=== PATIENT | female | born 1980 | race Caucasian/White ===

== ENCOUNTER 2017-09-20 20:23 | Inpatient (IN) | payer OTHER ==
[~2017-09-20] VITALS: Ht 172.7 cm; Wt 94.8 kg
[~2017-09-20 20:23] MED LIST: ACET325 PO; ALBU90OI INH; BUSP15 PO; CEPH500 PO; CIPR500 PO; CITA20 PO; CODGUAEL PO; CONEST1.25 PO; Cleocin HCl150 MG PO; Crutch1 EACH MISC; DOXY100 PO; HYDACE5 PO; IBUP400 PO; IBUP600; IBUP600 PO; IBUP800 PO; LEVSOD50 PO; LEVSOD75 PO; LORA1 PO; Loperamide2 MG PO; METR500 PO; Macrobid 100 M100 MG PO; Naprosyn500 MG PO; OXYACE5T PO; OXYC5; OXYC5 PO; PENVK500 PO; PHENA200 PO; POTCHL20ER PO; PREN-16 PO; PROM25 PO; Pyridium200 MG PO; RXHYDACE PO; RXOXYACE PO; SERT50 PO; SULTRIDS PO; SULTRISS; Tylenol325 MG PO; Vibramycin100 MG PO; Zofran Odt4 MG PO
[2017-09-20 20:50] LABS: BASOPHILS ABSOLUTE AUTO 0.02 K/mm3 (0.00-0.23); BASOPHILS PERCENT AUTO 0 % (0-2); EOSINOPHILS ABSOLUTE AUTO 0.18 K/mm3 (0.00-0.68); EOSINOPHILS PERCENT AUTO 2 % (0-6); Hematocrit 43.4 % (33.0-51.0); IMMATURE GRAN ABSOLUTE AUTO 0.01 K/mm3 (0.00-0.10); IMMATURE GRAN PERCENT AUTO 0 % (0-1); LYMPHOCYTES ABSOLUTE AUTO 3.68 K/mm3 (0.84-5.20); LYMPHOCYTES PERCENT AUTO 41 % (21-46); MONOCYTES ABSOLUTE AUTO 0.63 K/mm3 (0.16-1.47); MONOCYTES PERCENT AUTO 7 % (4-13); Mean Corpuscular HGB 27.4 pg (26.0-34.0); Mean Corpuscular Volume 91 fL (80-100); Mean Platelet Volume 8.2 fL (9.1-12.4); NEUTROPHILS ABSOLUTE AUTO 4.48 K/mm3 (1.96-9.15); NEUTROPHILS PERCENT AUTO 50 % (41-73); Platelet Count 261 K/mm3 (150-400); RDW Coefficient Variation 15.1 % (11.7-14.2); RDW Standard Deviation 50.7 fL (35.1-46.3); Red Blood Cell Count 4.75 M/mm3 (3.80-5.20)
[2017-09-20 21:09] LABS: Creatine Kinase MB 2.3 ng/mL (0.0-3.6); Creatine Kinase MB Index 2.6 (0.0-4.0)
[2017-09-20 21:10] LABS: Alanine Aminotransfer (ALT/SGP 36 U/L (12-78); Albumin, Blood 3.5 g/dL (3.4-5.0); Albumin/Globulin Ratio 0.7 (0.8-1.8); Alk Phos 108 U/L (50-136); Anion Gap 8 mmol/L (6-16); Aspartate Aminotrans (AST/SGOT 29 U/L (12-37); Bilirubin, Total 0.3 mg/dL (0.1-1.0); Blood Urea Nitrogen 13 mg/dL (8-24); Bun/Creatinine Ratio 20.6 (12.0-20.0); CO2, Blood 27 mmol/L (21-32); Calcium, Blood 8.8 mg/dL (8.5-10.1); Chloride, Blood 104 mmol/L (98-108); Creatinine, Blood 0.63 mg/dL (0.40-1.00); Ethanol (Alcohol), Blood, Med <3 mg/dL; Globulin, Blood 5.3 g/dL (2.2-4.0); Glomerular Filtration Rate >60 (60-); Glucose, Blood 78 mg/dL (70-99); Potassium, Blood 4.4 mmol/L (3.5-5.5); Salicylate 2.1 mg/dL (2.8-20.0); Sodium, Blood 139 mmol/L (136-145); Total Protein, Blood 8.8 g/dL (6.4-8.2)
[2017-09-20 21:14] LABS: Acetaminophen, Random <2.0 ug/mL (10.0-30.0)
[2017-09-20 21:26] LABS: Source, Urine Catheter
[2017-09-20 21:29] LABS: Bilirubin, Urine Neg (Neg); Blood, Urine Neg (Neg); Glucose Qualitative, Urine Neg (Neg); Ketones, Urine Neg (Neg); Leukocyte Esterase, Urine Neg (Neg); Nitrite, Urine Neg (Neg); Protein, Urine Neg (Neg); Specific Gravity, Urine 1.015 (1.003-1.022); Urobilinogen, Urine NORM (Normal)
[2017-09-20 21:36] LABS: Appearance, Urine Hazy (Clear); Color, Urine Yellow (P-Yellow)
[2017-09-20 21:38] LABS: White Blood Cells, Urine 0-2 /hpf (0-5)
[2017-09-20 21:40] LABS: Amorphous Heavy (0-Heavy); Bacteria Not Seen /hpf; Red Blood Cells, Urine Not Seen /hpf (0-2); Squamous Epithelial Cells Few /hpf (Few)
[2017-09-20 21:44] LABS: U Amphetamine Screen DETECTED; U Barbituate Screen Not Detected; U Benzodiazapine Screen DETECTED; U Cannabinoids Screen Not Detected; U Cocaine Screen Not Detected; U Methadone Screen DETECTED; U Methamphetamine Screen Not Detected; U Opiates Screen Not Detected; U Oxycodone Screen Not Detected; U Phencyclidine Screen Not Detected; U Propoxyphene Screen Not Detected
[2017-09-20 21:55] LABS: U Buprenorphine Screen DETECTED
[2017-09-20 22:15] LABS: Free Thyroxine 0.76 ng/dL (0.70-1.60)
[2017-09-21 08:11] LABS: BASOPHILS ABSOLUTE AUTO 0.01 K/mm3 (0.00-0.23); BASOPHILS PERCENT AUTO 0 % (0-2); EOSINOPHILS PERCENT AUTO 2 % (0-6); Hematocrit 33.7 % (33.0-51.0); Hemoglobin 10.3 g/dL (11.5-16.0); IMMATURE GRAN ABSOLUTE AUTO 0.01 K/mm3 (0.00-0.10); IMMATURE GRAN PERCENT AUTO 0 % (0-1); LYMPHOCYTES ABSOLUTE AUTO 1.54 K/mm3 (0.84-5.20); LYMPHOCYTES PERCENT AUTO 24 % (21-46); MONOCYTES PERCENT AUTO 6 % (4-13); Mean Corpuscular HGB 27.6 pg (26.0-34.0); Mean Corpuscular HGB Conc 30.6 g/dL (31.5-36.5); Mean Corpuscular Volume 90 fL (80-100); NEUTROPHILS ABSOLUTE AUTO 4.28 K/mm3 (1.96-9.15); NEUTROPHILS PERCENT AUTO 67 % (41-73); Platelet Count 181 K/mm3 (150-400); RDW Standard Deviation 49.7 fL (35.1-46.3); Red Blood Cell Count 3.73 M/mm3 (3.80-5.20); White Blood Cell Count 6.34 K/mm3 (4.00-11.30)
[2017-09-21 08:30] LABS: Alanine Aminotransfer (ALT/SGP 27 U/L (12-78); Albumin, Blood 2.6 g/dL (3.4-5.0); Alk Phos 80 U/L (50-136); Anion Gap 6 mmol/L (6-16); Aspartate Aminotrans (AST/SGOT 56 U/L (12-37); Bilirubin, Total 0.4 mg/dL (0.1-1.0); Blood Urea Nitrogen 10 mg/dL (8-24); Bun/Creatinine Ratio 17.4 (12.0-20.0); CO2, Blood 26 mmol/L (21-32); Chloride, Blood 110 mmol/L (98-108); Creatinine, Blood 0.58 mg/dL (0.40-1.00); Glomerular Filtration Rate >60 (60-); Glucose, Blood 88 mg/dL (70-99); Potassium, Blood 4.1 mmol/L (3.5-5.5); Sodium, Blood 142 mmol/L (136-145)
[2017-09-21 08:45] LABS: Albumin/Globulin Ratio 0.7 (0.8-1.8); Calcium, Blood 7.8 mg/dL (8.5-10.1); Total Protein, Blood 6.6 g/dL (6.4-8.2)
[2017-09-22 03:46] LABS: BASOPHILS ABSOLUTE AUTO 0.02 K/mm3 (0.00-0.23); BASOPHILS PERCENT AUTO 0 % (0-2); EOSINOPHILS ABSOLUTE AUTO 0.07 K/mm3 (0.00-0.68); EOSINOPHILS PERCENT AUTO 1 % (0-6); Hematocrit 32.8 % (33.0-51.0); Hemoglobin 10.2 g/dL (11.5-16.0); IMMATURE GRAN ABSOLUTE AUTO 0.01 K/mm3 (0.00-0.10); IMMATURE GRAN PERCENT AUTO 0 % (0-1); LYMPHOCYTES ABSOLUTE AUTO 1.35 K/mm3 (0.84-5.20); LYMPHOCYTES PERCENT AUTO 22 % (21-46); MONOCYTES ABSOLUTE AUTO 0.46 K/mm3 (0.16-1.47); MONOCYTES PERCENT AUTO 8 % (4-13); Mean Corpuscular HGB 27.4 pg (26.0-34.0); Mean Corpuscular HGB Conc 31.1 g/dL (31.5-36.5); Mean Corpuscular Volume 88 fL (80-100); Mean Platelet Volume 8.1 fL (9.1-12.4); NEUTROPHILS ABSOLUTE AUTO 4.18 K/mm3 (1.96-9.15); NEUTROPHILS PERCENT AUTO 69 % (41-73); Platelet Count 165 K/mm3 (150-400); RDW Coefficient Variation 15.1 % (11.7-14.2); RDW Standard Deviation 48.8 fL (35.1-46.3); Red Blood Cell Count 3.72 M/mm3 (3.80-5.20); White Blood Cell Count 6.09 K/mm3 (4.00-11.30)
[2017-09-22 04:07] LABS: Alanine Aminotransfer (ALT/SGP 24 U/L (12-78); Albumin, Blood 2.4 g/dL (3.4-5.0); Albumin/Globulin Ratio 0.6 (0.8-1.8); Alk Phos 73 U/L (50-136); Anion Gap 5 mmol/L (6-16); Aspartate Aminotrans (AST/SGOT 39 U/L (12-37); Bilirubin, Total 0.5 mg/dL (0.1-1.0); Blood Urea Nitrogen 7 mg/dL (8-24); Bun/Creatinine Ratio 13.5 (12.0-20.0); CO2, Blood 27 mmol/L (21-32); Calcium, Blood 7.6 mg/dL (8.5-10.1); Chloride, Blood 110 mmol/L (98-108); Creatinine, Blood 0.52 mg/dL (0.40-1.00); Globulin, Blood 4.1 g/dL (2.2-4.0); Glomerular Filtration Rate >60 (60-); Glucose, Blood 109 mg/dL (70-99); Magnesium, Blood 2.2 mg/dL (1.6-2.4); Phosphorus, Blood 4.2 mg/dL (2.5-4.9); Potassium, Blood 3.8 mmol/L (3.5-5.5); Sodium, Blood 142 mmol/L (136-145); Total Protein, Blood 6.5 g/dL (6.4-8.2)
[2017-09-22 05:35] LABS: PCO2 Arterial 41.2 mmHg (35-45); pH Blood Arterial 7.42 (7.35-7.45)
[2017-09-24] MEDS ORDERED: CONEST1.25 PO (08:58)
[2017-09-24] MEDS ORDERED: Methadose10 MG/1 ML (08:59)
== END 2017-09-24 10:15 | disposition home or self-care (01) | DRG 917 ==
LOC: ER 20:23 → ICUW 21:55 → ICUE 21:55 → MEDS 21:55 → EDBD 21:55 → ICUE 22:05 → MEDS 09-22 17:18 → ENPENDDIS 09-24 08:20 → MEDS 09-24 10:15
PROVIDERS: Emergency Medicine; Family Medicine; Internal Medicine Critical Care Medicine
PROC: 5A1945Z Respiratory Ventilation, 24-96 Consecutive Hours (ICD-10-PCS; principal; 2017-09-20)
PROC: 0BH17EZ Insertion of Endotracheal Airway into Trachea, Via Natural or Artificial Opening (ICD-10-PCS; 2017-09-20)
PROC: 3E0234Z Introduction of Serum, Toxoid and Vaccine into Muscle, Percutaneous Approach (ICD-10-PCS; 2017-09-21)
DX: T43.691A Poisoning by other psychostimulants, accidental (unintentional), initial encounter (principal); J96.00 Acute respiratory failure, unspecified whether with hypoxia or hypercapnia; F11.20 Opioid dependence, uncomplicated; F15.959 Other stimulant use, unspecified with stimulant-induced psychotic disorder, unspecified; Z23 Encounter for immunization
CPT/HCPCS: 31500; 31720; 36415; 36600; 51702; 71045; 80053; 81001; 81025; 82550; 82553; 82803; 82947; 83735; 84100; 84439; 84443; 84481; 85025; 87040; 93005; 93010; 94002; 94003; 96374; 96375; 99291; 99292; C1751; C9113; G0008; G0480; J1200; J1630; J1650; J2060; J7030; Q2038

== ENCOUNTER 2019-05-20 05:33 | Emergency (ER) | payer OTHER ==
[~2019-05-20] VITALS: Ht 165.1 cm; Wt 77.1 kg
[~2019-05-20 05:33] MED LIST changes: +Methadose10 MG/1 ML
[2019-05-20 06:04] LABS: BASOPHILS ABSOLUTE AUTO 0.02 K/mm3 (0.00-0.23); BASOPHILS PERCENT AUTO 0 % (0-2); EOSINOPHILS ABSOLUTE AUTO 0.05 K/mm3 (0.00-0.68); EOSINOPHILS PERCENT AUTO 1 % (0-6); Hematocrit 38.1 % (33.0-51.0); Hemoglobin 11.8 g/dL (11.5-16.0); IMMATURE GRAN ABSOLUTE AUTO 0.04 K/mm3 (0.00-0.10); IMMATURE GRAN PERCENT AUTO 1 % (0-1); LYMPHOCYTES ABSOLUTE AUTO 0.93 K/mm3 (0.84-5.20); LYMPHOCYTES PERCENT AUTO 12 % (21-46); MONOCYTES ABSOLUTE AUTO 0.58 K/mm3 (0.16-1.47); MONOCYTES PERCENT AUTO 8 % (4-13); Mean Corpuscular HGB 26.2 pg (26.0-34.0); Mean Corpuscular Volume 85 fL (80-100); Mean Platelet Volume 8.3 fL (9.1-12.4); NEUTROPHILS ABSOLUTE AUTO 5.89 K/mm3 (1.96-9.15); NEUTROPHILS PERCENT AUTO 78 % (41-73); Platelet Count 180 K/mm3 (150-400); RDW Coefficient Variation 14.8 % (11.7-14.2); RDW Standard Deviation 45.8 fL (35.1-46.3); White Blood Cell Count 7.51 K/mm3 (4.00-11.30)
[2019-05-20 06:26] LABS: Source, Urine Catheter
[2019-05-20 06:28] LABS: Anion Gap 6 mmol/L (6-16); Blood Urea Nitrogen 9 mg/dL (8-24); Bun/Creatinine Ratio 12.7 (12.0-20.0); CO2, Blood 27 mmol/L (21-32); Calcium, Blood 8.7 mg/dL (8.5-10.1); Chloride, Blood 107 mmol/L (98-108); Creatinine, Blood 0.71 mg/dL (0.40-1.00); Glomerular Filtration Rate >60 (60-); Glucose, Blood 128 mg/dL (70-99); Potassium, Blood 3.3 mmol/L (3.5-5.5); Sodium, Blood 140 mmol/L (136-145)
[2019-05-20 06:30] LABS: Appearance, Urine Cloudy (Clear); Blood, Urine 1+ (Neg); Color, Urine Amber (P-Yellow); Glucose Qualitative, Urine Neg (Neg); Ketones, Urine 1+ (Neg); Leukocyte Esterase, Urine 3+ (Neg); Nitrite, Urine Neg (Neg); Protein, Urine 2+ (Neg); Urobilinogen, Urine 2+ (Normal)
[2019-05-20 07:03] LABS: Bilirubin, Urine 1+ (Neg)
[2019-05-20 07:04] LABS: Bacteria Mod /hpf; Squamous Epithelial Cells Few /hpf (Few); White Blood Cells, Urine 25-50 /hpf (0-5)
[2019-05-20 07:05] LABS: Calcium Oxalate Crystals Few /hpf; Mucus Mod ({null, 0-Heavy})
[2019-05-20] MEDS ORDERED: CYCL10 PO (07:42)
[2019-05-20] MEDS ORDERED: Macrobid 100 M100 MG PO (07:42)
[2019-05-20] MEDS ORDERED: Naprosyn500 MG PO (07:42)
== END 2019-05-20 07:48 | disposition home or self-care (01) ==
LOC: ER 05:33
PROVIDERS: Internal Medicine
DX: N39.0 Urinary tract infection, site not specified (principal)
CPT/HCPCS: 36415; 74176; 80048; 81001; 85025; 87077; 87086; 87147; 87186; 96374; 99284-25; J1885

== ENCOUNTER 2019-06-25 06:06 | Emergency (ER) | payer OTHER ==
[~2019-06-25] VITALS: Ht 165.1 cm; Wt 81.7 kg
[~2019-06-25 06:06] MED LIST changes: +CYCL10 PO
== END 2019-06-25 07:18 | disposition home or self-care (01) ==
LOC: ER 06:06
DX: M25.512 Pain in left shoulder (principal); G89.29 Other chronic pain; F17.200 Nicotine dependence, unspecified, uncomplicated; Z88.5 Allergy status to narcotic agent
CPT/HCPCS: 73030; 99283-25

== ENCOUNTER 2019-12-24 16:06 | Emergency (ER) | payer OTHER ==
[~2019-12-24] VITALS: Ht 165.1 cm; Wt 77.1 kg
== END 2019-12-24 18:11 | disposition home or self-care (01) ==
LOC: ER 16:06
DX: S50.02XA Contusion of left elbow, initial encounter (principal); Z88.5 Allergy status to narcotic agent; W01.0XXA Fall on same level from slipping, tripping and stumbling without subsequent striking against object, initial encounter
CPT/HCPCS: 29125; 73080; 99283-25

== ENCOUNTER 2021-02-12 13:38 | Inpatient (IN) | payer OTHER ==
[~2021-02-12] VITALS: Ht 165.1 cm; Wt 89.5 kg
[~2021-02-12 13:38] MED LIST changes: +Cleocin HCl300 MG PO
[2021-02-12 17:06] LABS: BASOPHILS ABSOLUTE AUTO 0.04 K/mm3 (0.00-0.23); BASOPHILS PERCENT AUTO 0 % (0-2); EOSINOPHILS ABSOLUTE AUTO 0.03 K/mm3 (0.00-0.68); EOSINOPHILS PERCENT AUTO 0 % (0-6); Hematocrit 48.3 % (33.0-51.0); Hemoglobin 15.9 g/dL (11.5-16.0); IMMATURE GRAN ABSOLUTE AUTO 0.07 K/mm3 (0.00-0.10); IMMATURE GRAN PERCENT AUTO 1 % (0-1); LYMPHOCYTES PERCENT AUTO 14 % (21-46); MONOCYTES ABSOLUTE AUTO 1.74 K/mm3 (0.16-1.47); MONOCYTES PERCENT AUTO 11 % (4-13); Mean Corpuscular HGB Conc 32.9 g/dL (31.5-36.5); Mean Corpuscular Volume 88 fL (80-100); Mean Platelet Volume 8.2 fL (9.1-12.4); NEUTROPHILS ABSOLUTE AUTO 11.25 K/mm3 (1.96-9.15); NEUTROPHILS PERCENT AUTO 73 % (41-73); Platelet Count 222 K/mm3 (150-400); RDW Coefficient Variation 13.8 % (11.7-14.2); RDW Standard Deviation 44.8 fL (35.1-46.3); Red Blood Cell Count 5.49 M/mm3 (3.80-5.20); White Blood Cell Count 15.33 K/mm3 (4.00-11.30)
[2021-02-12 17:26] LABS: Alanine Aminotransfer (ALT/SGP 101 U/L (12-78); Albumin, Blood 2.1 g/dL (3.4-5.0); Albumin/Globulin Ratio 0.5 (0.8-1.8); Alk Phos 63 U/L (50-136); Anion Gap 5 mmol/L (6-16); Aspartate Aminotrans (AST/SGOT 48 U/L (12-37); Bilirubin, Total 0.8 mg/dL (0.1-1.0); Blood Urea Nitrogen 17 mg/dL (8-24); Bun/Creatinine Ratio 22.8 (12.0-20.0); CO2, Blood 27 mmol/L (21-32); Chloride, Blood 101 mmol/L (98-108); Creatinine, Blood 0.75 mg/dL (0.40-1.00); Globulin, Blood 4.6 g/dL (2.2-4.0); Glomerular Filtration Rate >60 (60-); Glucose, Blood 140 mg/dL (70-99); Potassium, Blood 4.2 mmol/L (3.5-5.5); Sodium, Blood 133 mmol/L (136-145); Total Protein, Blood 6.7 g/dL (6.4-8.2)
[2021-02-12 20:40] LABS: CPK Creatine Kinase 36 U/L (26-193)
[2021-02-12 21:03] LABS: Creatine Kinase MB <1.0 ng/mL (0.0-3.6); Creatine Kinase MB Index Unable to Calculate (0.0-4.0)
[2021-02-13 04:30] LABS: Hemoglobin 16.9 g/dL (11.5-16.0); Mean Corpuscular HGB 28.7 pg (26.0-34.0); Mean Corpuscular HGB Conc 33.8 g/dL (31.5-36.5); Mean Corpuscular Volume 85 fL (80-100); Mean Platelet Volume 8.2 fL (9.1-12.4); Platelet Count 329 K/mm3 (150-400); RDW Coefficient Variation 13.7 % (11.7-14.2); RDW Standard Deviation 42.9 fL (35.1-46.3); Red Blood Cell Count 5.89 M/mm3 (3.80-5.20); White Blood Cell Count 26.93 K/mm3 (4.00-11.30)
[2021-02-13 04:47] LABS: Anion Gap 7 mmol/L (6-16); Blood Urea Nitrogen 19 mg/dL (8-24); Bun/Creatinine Ratio 20.4 (12.0-20.0); CO2, Blood 24 mmol/L (21-32); Calcium, Blood 7.6 mg/dL (8.5-10.1); Chloride, Blood 103 mmol/L (98-108); Creatinine, Blood 0.93 mg/dL (0.40-1.00); Glomerular Filtration Rate >60 (60-); Glucose, Blood 134 mg/dL (70-99); Potassium, Blood 4.1 mmol/L (3.5-5.5); Sodium, Blood 134 mmol/L (136-145)
--- NOTE | 2021-02-13 04:52 | NUR ---
AT APPROX 0320 PT HOLLERING OUT "NURSE". PT FOUND SITTING UP ON EDGE OF BED WITH IV PULLED OUT. PT REPORTING THAT SUBOXONE MADE WITHDRAWAL SYMPTOMS WORSE. PT RESTLESS, PULLING OUT HAIR, AND PUNCHING HERSELF. PT THREATENING TO LEAVE HOSPITAL BECAUSE "SHE CAN'T DO THIS". PT EDUCATED ON RISKS OF LEAVING WITHOUT TREATMENT SUCH WORSENING INFECTION AND POSSIBLE . PT STATES SHE WILL STAY IF WE CAN MANAGE HER PAIN AND SYMPTOMS. DR. SALAS NOTIFIED DURING THIS TIME AND NEW ORDER FOR DILAUDID WAS GIVEN. ICU NURSE NOTIFIED FOR IV PLACEMENT. IV ESTABLISHED AT APPROX 0415 AND 1MG DILAUDID ADMINISTERED. AFTER ADMINISTRATION, PT C/O DILAUDID NOT BEING EFFECTIVE. PT PACING AROUND ROOM, KICKING AT HER BED AND HOLLERING OUT. PT THEN BECAME NAUSEATED. ZOFRAN ADMINISTERED PER EMAR. IV THEN INFILTRATED AND PT EDUCATED ON THE NEED FOR IV TO BE TAKEN OUT. PT BEGAN PACKING UP HER THINGS. PT REMINDED AGAIN ABOUT RISKS OF LEAVING WITHOUT TREATMENT. PT ASKED IF SHE HAD A PLACE TO GO AFTER LEAVING AND STATED "YES, MY [facility]". PT SIGNED AMA FORM AND LEFT AT APPROX 0430. IV TAKEN OUT AND PT BELONGINGS SENT WITH PT. NURSE ORE GRADER AND DR. SALAS NOTIFIED.
--- NOTE | 2021-02-13 06:08 | NUR ---
SHIFT SUMMARY PT ALERT AND ORIENTED X4. SLEPT MOST OF THE NIGHT. STARTED TO FEEL PAINFUL AROUND 0130 AM. PAIN MANAGED WITH TORADOL AND TYLENOL. CALLED DR. SALAS FOR CHANGE IN PAIN MANAGEMENT BECAUSE NOTHING SEEMS TO HELP HER RELIEF HER PAIN. ORDER OF 1 DOSE OF 50MCG FENTANYL AND CHANGED OF TORADOL 15-30MG TO Q4 INSTEAD OF Q6. PT ALSO STARTED TO FEEL NAUSEATED. VOMITED SEVERAL TIMES. SHE FINALLY TOLD ME THAT "I AM NOT HONEST WITH YOU, I LIED" PT STATES THAT SHE HAS BEEN USING HEROIN. LAST TAKEN YESTERDAY. SHE STATES THAT "I AM HAVING WITHDRAWAL". PT STARTED TO FEEL DISTRESS, TWITCHY, ANXIOUS, UNEASY, AND WOULD HURT HERSELF WELL. NOTIFIED CHARGE NURSE, SONIA. PT EVENTUALLY STARTED SCREAMING AND HITTING HERSELF, STATING THAT SHE IS WANTING TO LEAVE. I TALKED TO HER AND EXPLAIN THE RISK AND BENEFITS OF LEAVING AMA. SONIA RN-CHARGE CALLED DR. SALAS REGARDING PATIENT'S STATUS. PT STARTS WALING IN THE HALLWAY, OFFERED TO PUT HER IN W/C WHICH SHE AGREES. THEN SHE STARTED VOMITING AGAIN. WHEELED HER BACK IN HER ROOM BUT PATIENT REFUSE TO STAY STILL AND CONTINUES TO HURT HERSELF. ICU NURSE DORITA CAME IN TO SEE PT TO PLACE AN IV, PT WAS UNSTEADY, KEPT MOVING AROUND AND STATING SHE CAN'T HELP TWITCHNG. SUCCESSFULLY PLACED AN IV BUT INFILTRATED. PT CONTINUES TO STATE THAT SHE IS WANTING TO LEAVE. CHARGE NURSE TOOK OVER AND SPOKE WITH PATIENT, PT LEFT THE FACILITY, ESCORTED BY SONIA AT AROUND 0430AM VIA WHEELCHAIR.
== END 2021-02-13 04:30 | disposition left against medical advice (07) | DRG 872 ==
LOC: ER 13:38 → SURS 17:09
PROVIDERS: Physician Assistant; ADMIT Internal Medicine
DX: A41.9 Sepsis, unspecified organism (principal); L03.116 Cellulitis of left lower limb; E89.0 Postprocedural hypothyroidism; F17.210 Nicotine dependence, cigarettes, uncomplicated; Z90.49 Acquired absence of other specified parts of digestive tract; Z98.890 Other specified postprocedural states; Z86.14 Personal history of Methicillin resistant Staphylococcus aureus infection; Z90.710 Acquired absence of both cervix and uterus; Z79.899 Other long term (current) drug therapy
CPT/HCPCS: 36415; 72193; 80048; 80053; 82550; 82553; 85025; 85027; 85651; 86140; 87040; 96365-59; 96375; 99284-25; A9270; J0690; J1170; J1650; J1885; J2405; J2543; J3010; J3370; J7030; Q9967